=== PATIENT | male | born 1960 | race African-American/Black ===

== ENCOUNTER 2021-10-20 14:00 | Emergency (ER) | payer MEDICAID ==
[~2021-10-20] VITALS: Ht 188 cm; Wt 79.0 kg
[2021-10-20 14:27] VITALS: BP 137/93
[2021-10-20] MEDS ORDERED: ACETAMINOPHEN 500MG TABLET PO ONE (15:00)
[2021-10-20 15:23] LABS: BASOPHILS % 0.3 % (0.0-2.0); EOSINOPHILS % 0.4 % (0.0-5.0); HEMATOCRIT. 45.2 % (42.0-52.0); LYMPHOCYTES % 20.7 % (20.0-50.0); MEAN CORPUSCULAR HEMOGLOBIN 34.7 pg (28.0-32.0); MEAN CORPUSCULAR VOLUME 104.7 fL (80.0-94.0); MEAN PLATELET VOLUME 8.8 fl (7.4-10.4); MONOCYTES % 10.9 % (2.0-8.0); NEUTROPHILS % 67.7 % (40.0-76.0); PLATELET 215 x1000/uL (130-400); RED BLOOD CELL COUNT 4.32 mill/uL (4.7-6.1); RED CELL DISTRIBUTION WIDTH 15.2 % (11.6-14.6)
[2021-10-20 15:43] LABS: CHLORIDE 100 mEq/L (98-107)
[2021-10-20] MEDS ORDERED: NAPR-1176 MT (15:53)
== END 2021-10-20 16:13 | disposition home or self-care (01) ==
LOC: ER 14:47
DX: M25.562 Pain in left knee (principal); M25.552 Pain in left hip; M79.672 Pain in left foot; R03.0 Elevated blood-pressure reading, without diagnosis of hypertension
CPT/HCPCS: 36415; 80048; 85025; 93971; 99284